=== PATIENT | male | born 1970 | race Caucasian/White ===

== ENCOUNTER 2023-10-11 13:11 | Inpatient (IN) | payer SELFPAY ==
[~2023-10-11] VITALS: Ht 160 cm; Wt 69.2 kg
[2023-10-11 13:22] VITALS: BP_SYST 110; PULSE 118; RESP 18; TEMP 97; O2SAT 96
[2023-10-11] MEDS: NACL 0.9% 1,000 ML IV ONE (14:02)
[2023-10-11 14:43] LABS: BASOPHILS % (AUTO) 0.4 % (0.0-2.0); EOSINOPHILS % (AUTO) 0.1 % (0.0-4.0); HEMATOCRIT 25.8 % (36-54); HEMOGLOBIN 8.6 g/dL (14.0-18.0); LYMPHOCYTES % (AUTO) 12.9 % (20.5-51.5); MEAN CORPUSCULAR HEMOGLOBIN 35 pg (27-31); MEAN CORPUSCULAR HGB CONC 33 % (32-36); MEAN CORPUSCULAR VOLUME 106 fL (79.0-98.0); MONOCYTES # (AUTO) 0.8 K/uL (0.0-1.0); MONOCYTES % (AUTO) 10.1 % (1.7-9.3); NEUTROPHILS # (AUTO) 6.1 K/uL (1.8-7.7); NEUTROPHILS % (AUTO) 76.5 % (40.0-70.0); RED BLOOD CELL COUNT(AUTO) 2.45 MIL/uL (4.2-6.2); RED CELL DISTRIBUTION WIDTH 16.5 % (9.0-15.0)
[2023-10-11 14:48] LABS: ANION GAP 13 (5-15); CALCIUM 8.1 mg/dL (8.4-11.0); CARBON DIOXIDE 20 mmol/L (23-29); CHLORIDE 111 mmol/L (98-107); CREATININE 1.51 mg/dL (0.55-1.30); GFR AFRICAN AMERICAN 62 mL/min (>90); GLUCOSE 191 mg/dL (74-106); POTASSIUM 3.4 mmol/L (3.5-5.1); SODIUM SERUM 144 mmol/L (136-145); UREA NITROGEN, BLOOD 22 mg/dL (8-21)
[2023-10-11 14:50] LABS: GFR NON AFRICAN-AMERICAN 51 mL/min (>90)
[2023-10-11 14:51] LABS: ANISOCYTOSIS 1+; OVALOCYTES FEW; PLATELET COUNT (AUTO) 88 K/uL (130-430)
[2023-10-11 16:04] LABS: BILIRUBIN,URINE NEGATIVE (NEGATIVE); BLOOD, URINE NEGATIVE (NEGATIVE); COLOR,URINE YELLOW (YELLOW); GLUCOSE,URINE NEGATIVE (NEGATIVE); KETONES,URINE NEGATIVE (NEGATIVE); LEUKOCYTE ESTERASE ,URINE 1+ (NEGATIVE); NITRITE, URINE POSITIVE (NEGATIVE); PH,URINE 6.5 (5.0-8.0); PROTEIN URINE NEGATIVE (NEGATIVE); UROBILINOGEN,URINE 0.2 (0.2-1.0)
[2023-10-11 16:12] LABS: CLARITY/URINE HAZY (CLEAR); RBC,URINE NONE SEEN /HPF (0-3)
[2023-10-11 16:13] LABS: BACTERIA,URINE MODERATE /HPF (None Seen); MUCUS,URINE None Seen /LPF (None Seen)
[2023-10-11 16:16] LABS: BARBITURATE, URINE NEGATIVE (NEG <=200); BENZODIAZEPINE, URINE NEGATIVE (NEG <=150); CANNABINOID, URINE NEGATIVE (NEG <=50); COCAINE, URINE NEGATIVE (NEG <=150); METHAMPHETAMINES SCREEN,URINE NEGATIVE (NEG <=500); OPIATE, URINE NEGATIVE (NEG <=100); PHENCYCLIDINE SCREEN,URINE NEGATIVE (NEG <=25); URINE AMPHETAMINE NEGATIVE (NEG <=500); URINE METHADONE NEGATIVE (NEG <=200); URINE OXYCODONE SCREEN NEGATIVE (NEG <=100)
[2023-10-11 16:17] LABS: UR TRICYCLIC ANTIDEPRESSANTS NEGATIVE (NEG <=300)
[2023-10-11] MEDS ORDERED: cefTRIAXone 1 GM VIAL ONE (16:37)
[2023-10-11] MEDS: cefTRIAXone 1 GM in D5W 50 ML IV ONE (16:56)
[2023-10-11] MEDS: ONDANSETRON 4 MG ODT TAB PO ONE (16:56)
[2023-10-11 18:34] LABS: ALBUMIN 2.4 g/dL (3.4-4.8); BILIRUBIN,DIRECT 1.3 mg/dL (0.0-0.3); TOTAL BILIRUBIN 2.7 mg/dL (0.0-1.0); TOTAL PROTEIN, SERUM 6.4 g/dL (6.4-8.3)
[2023-10-11] MEDS: NS 500 ML IV ONE (20:04)
[2023-10-11] MEDS ORDERED: DEXTROSE 50% JECT 50 ML DISP.SYRIN IVP PRN (20:30)
[2023-10-11] MEDS: chlordiazePOXIDE HCL 25 MG CAPSULE PO SCH (20:54)
[2023-10-11] MEDS: PANTOPRAZOLE SODIUM 40 MG/VIAL (PROTONIX) IVP ONE (21:05)
[2023-10-11 21:40] VITALS: BP_SYST 124; PULSE 115; RESP 20; TEMP 99; O2SAT 100
[2023-10-12] MEDS ORDERED: FOLIC ACID 5 MG/ML VIAL IV ONE (00:18)
[2023-10-12] MEDS ORDERED: THIAMINE HCL 200 MG/2 ML VIAL ONE (00:18)
[2023-10-12] MEDS ORDERED: MAGNESIUM SULFATE 1 GM/2 ML VIAL ONE (00:18)
[2023-10-12] MEDS ORDERED: MVI 10 ML VIAL IV ONE (00:18)
[2023-10-12 00:20] VITALS: BP_SYST 132; PULSE 110; RESP 18; TEMP 98.2; O2SAT 99
[2023-10-12] MEDS: metroNIDAZOLE 250 MG TABLET PO SCH (00:40)
[2023-10-12] MEDS: LEVOFLOXACIN 250 MG/D5W 50 ML IV ONE (00:42)
[2023-10-12] MEDS: LEVOFLOXACIN 250 MG/D5W 50 ML IV SCH (00:42)
[2023-10-12] MEDS: FOLIC ACID 1 MG, THIAMINE HCL 100 MG, MAGNESIUM SULFATE 1 GM, MVI 10 ML in NACL 0.9% 1,... IV ONE (02:21)
[2023-10-12] MEDS: ONDANSETRON HCL 4 MG/2 ML VIAL IM PRN (02:56)
[2023-10-12 06:25] LABS: INR 1.5 (0.80-1.20); PROTHROMBIN TIME 15.4 SECS (9.5-12.5)
[2023-10-12 06:27] LABS: BASOPHILS % (AUTO) 0.4 % (0.0-2.0); EOSINOPHILS % (AUTO) 0.2 % (0.0-4.0); HEMATOCRIT 23.6 % (36-54); HEMOGLOBIN 7.9 g/dL (14.0-18.0); LYMPHOCYTES % (AUTO) 25.6 % (20.5-51.5); MEAN CORPUSCULAR HEMOGLOBIN 35 pg (27-31); MEAN CORPUSCULAR HGB CONC 34 % (32-36); MEAN CORPUSCULAR VOLUME 103 fL (79.0-98.0); MONOCYTES # (AUTO) 0.5 K/uL (0.0-1.0); MONOCYTES % (AUTO) 6.5 % (1.7-9.3); NEUTROPHILS # (AUTO) 5.4 K/uL (1.8-7.7); NEUTROPHILS % (AUTO) 67.3 % (40.0-70.0); PLATELET COUNT (AUTO) 76 K/uL (130-430); RED BLOOD CELL COUNT(AUTO) 2.29 MIL/uL (4.2-6.2)
[2023-10-12 06:54] LABS: ALBUMIN 2.3 g/dL (3.4-4.8); CALCIUM 8.1 mg/dL (8.4-11.0); CREATININE 1.62 mg/dL (0.55-1.30); POTASSIUM 3.5 mmol/L (3.5-5.1); TOTAL BILIRUBIN 2.8 mg/dL (0.0-1.0)
[2023-10-12 07:30] LABS: RED CELL DISTRIBUTION WIDTH 16.4 % (9.0-15.0)
[2023-10-12 08:00] VITALS: BP_SYST 120; PULSE 110; RESP 28; TEMP 98.6; O2SAT 100
[2023-10-12] MEDS ORDERED: NALOXONE HCL 0.4 MG/ML AMP (NARCAN) IVP PRN (09:30)
[2023-10-12] MEDS: THIAMINE HCL 100 MG TABLET PO SCH (10:05)
[2023-10-12] MEDS: FOLIC ACID 1 MG TABLET PO SCH (10:05)
[2023-10-12] MEDS: PANTOPRAZOLE SODIUM 40 MG/VIAL (PROTONIX) IVP SCH (10:06)
[2023-10-12] MEDS: HYDROcodone/ACETAMIN 5-325 MG TAB (NORCO/ VICODIN) PO PRN (10:13)
[2023-10-12] MEDS: PROPRANOLOL HCL 10 MG TABLET (INDERAL) PO SCH (10:27)
[2023-10-12 11:01] LABS: TOTAL IRON BIND. CAPACITY 261 ug/dL (250-450)
[2023-10-12 12:00] VITALS: BP_SYST 101; PULSE 66; RESP 18; TEMP 98.4; O2SAT 100
[2023-10-12 16:00] VITALS: BP_SYST 111; PULSE 68; RESP 20; TEMP 98.7; O2SAT 99
[2023-10-12 20:00] VITALS: BP_SYST 101; PULSE 71; RESP 18; TEMP 96.9; O2SAT 98
[2023-10-13 00:28] VITALS: BP_SYST 100; PULSE 71; RESP 16; TEMP 97.4; O2SAT 99
[2023-10-13 05:00] LABS: BASOPHILS % (AUTO) 0.8 % (0.0-2.0); EOSINOPHILS # (AUTO) 0.1 K/uL (0.0-0.4); EOSINOPHILS % (AUTO) 2.5 % (0.0-4.0); HEMATOCRIT 22.2 % (36-54); HEMOGLOBIN 7.2 g/dL (14.0-18.0); LYMPHOCYTES # (AUTO) 1.9 K/uL (1.0-5.5); LYMPHOCYTES % (AUTO) 34.4 % (20.5-51.5); MEAN CORPUSCULAR HEMOGLOBIN 35 pg (27-31); MEAN CORPUSCULAR HGB CONC 33 % (32-36); MEAN CORPUSCULAR VOLUME 106 fL (79.0-98.0); MONOCYTES # (AUTO) 0.4 K/uL (0.0-1.0); MONOCYTES % (AUTO) 6.9 % (1.7-9.3); NEUTROPHILS % (AUTO) 55.4 % (40.0-70.0); PLATELET COUNT (AUTO) 79 K/uL (130-430); RED BLOOD CELL COUNT(AUTO) 2.09 MIL/uL (4.2-6.2); WHITE BLOOD COUNT (AUTO) 5.4 K/uL (4.8-10.8)
[2023-10-13 05:39] LABS: ALBUMIN 2.1 g/dL (3.4-4.8); CREATININE 1.62 mg/dL (0.55-1.30); POTASSIUM 3.6 mmol/L (3.5-5.1); THYROID STIMULATING HORMONE 2.27 uIu/mL (0.36-3.74); TOTAL PROTEIN, SERUM 5.3 g/dL (6.4-8.3)
[2023-10-13 08:00] VITALS: BP_SYST 104; PULSE 72; RESP 12; TEMP 98.1; O2SAT 97
[2023-10-13 11:17] VITALS: BP_SYST 103; PULSE 74; RESP 16; TEMP 97.5; O2SAT 99
[2023-10-13] MEDS: LORazepam 2 MG/ML VIAL IVP PRN (14:00)
[2023-10-13 16:09] VITALS: BP_SYST 105; PULSE 75; RESP 16; TEMP 97.9; O2SAT 99
[2023-10-13 20:00] VITALS: BP_SYST 112; PULSE 73; RESP 16; TEMP 96.9; O2SAT 99
[2023-10-14] VITALS: BP_SYST 93; RESP 16; TEMP 98.3; O2SAT 100
[2023-10-14 04:55] LABS: BASOPHILS % (AUTO) 0.8 % (0.0-2.0); EOSINOPHILS # (AUTO) 0.1 K/uL (0.0-0.4); EOSINOPHILS % (AUTO) 2.4 % (0.0-4.0); HEMOGLOBIN 7.2 g/dL (14.0-18.0); LYMPHOCYTES # (AUTO) 2.1 K/uL (1.0-5.5); LYMPHOCYTES % (AUTO) 42.4 % (20.5-51.5); MEAN CORPUSCULAR HEMOGLOBIN 36 pg (27-31); MEAN CORPUSCULAR HGB CONC 34 % (32-36); MEAN CORPUSCULAR VOLUME 106 fL (79.0-98.0); MONOCYTES # (AUTO) 0.3 K/uL (0.0-1.0); MONOCYTES % (AUTO) 6.3 % (1.7-9.3); NEUTROPHILS # (AUTO) 2.4 K/uL (1.8-7.7); NEUTROPHILS % (AUTO) 48.1 % (40.0-70.0); PLATELET COUNT (AUTO) 89 K/uL (130-430); RED BLOOD CELL COUNT(AUTO) 2.03 MIL/uL (4.2-6.2); RED CELL DISTRIBUTION WIDTH 16.3 % (9.0-15.0); RETICULOCYTE COUNT 5.1 % (0.5-1.5); WHITE BLOOD COUNT (AUTO) 4.9 K/uL (4.8-10.8)
[2023-10-14 05:07] LABS: INR 1.4 (0.80-1.20); PROTHROMBIN TIME 14.5 SECS (9.5-12.5)
[2023-10-14 05:51] LABS: CALCIUM 7.8 mg/dL (8.4-11.0); CREATININE 1.62 mg/dL (0.55-1.30); PHOSPHORUS 3.6 mg/dL (2.7-4.5); POTASSIUM 3.4 mmol/L (3.5-5.1); TOTAL BILIRUBIN 1.3 mg/dL (0.0-1.0); TOTAL PROTEIN, SERUM 5.2 g/dL (6.4-8.3)
[2023-10-14] MEDS: MIDAZOLAM HCL 5 MG/5 ML VIAL ONE (07:59)
[2023-10-14] MEDS: MEPERIDINE 100 MG INJ. 100 MG/ML VIAL ONE (07:59)
[2023-10-14 08:10] VITALS: BP_SYST 98; PULSE 58; RESP 18; TEMP 97.4; O2SAT 100
[2023-10-14 08:56] LABS: HEMATOCRIT 21.4 % (36-54)
[2023-10-14 12:32] VITALS: BP_SYST 107; PULSE 58; RESP 18; TEMP 97.6; O2SAT 95
[2023-10-14] MEDS ORDERED: NEPH PO (12:37)
[2023-10-14] MEDS ORDERED: PROP10TA10 PO (12:37)
[2023-10-14] MEDS: POTASSIUM CHLORIDE 20 MEQ TABLET.ER PO ONE (14:26)
[2023-10-14] MEDS: KCL 20 mEq in 100 mL (PREMIX) 100 ML IV ONE (14:27)
[2023-10-14] MEDS: cefTRIAXone 1 GM in D5W 50 ML IV SCH (16:00)
[2023-10-14 17:06] VITALS: BP_SYST 106; PULSE 52; RESP 18; TEMP 97.5; O2SAT 95
[2023-10-14] MEDS: OCTREOTIDE ACETATE 1,250 MCG in NS 250 ML IV SCH (18:16)
[2023-10-14] MEDS: OCTREOTIDE ACETATE 50 MCG/ML AMP IVP ONE (18:16)
[2023-10-14 20:00] VITALS: BP_SYST 110; PULSE 54; RESP 16; TEMP 97.7; O2SAT 100
[2023-10-14] MEDS: INSULIN REGULAR, HUMAN 100 UNITS/ML, 3 ML VIAL (humuLIN R) SUBCUT PRN (21:38)
[2023-10-15] VITALS: BP_SYST 103; PULSE 62; RESP 16; TEMP 97.9; O2SAT 98
[2023-10-15 05:28] LABS: EOSINOPHILS # (AUTO) 0.1 K/uL (0.0-0.4); EOSINOPHILS % (AUTO) 2.2 % (0.0-4.0); HEMATOCRIT 22.6 % (36-54); HEMOGLOBIN 7.5 g/dL (14.0-18.0); LYMPHOCYTES # (AUTO) 1.6 K/uL (1.0-5.5); LYMPHOCYTES % (AUTO) 35.9 % (20.5-51.5); MEAN CORPUSCULAR HEMOGLOBIN 36 pg (27-31); MEAN CORPUSCULAR HGB CONC 33 % (32-36); MEAN CORPUSCULAR VOLUME 107 fL (79.0-98.0); MONOCYTES # (AUTO) 0.4 K/uL (0.0-1.0); MONOCYTES % (AUTO) 8.9 % (1.7-9.3); NEUTROPHILS # (AUTO) 2.4 K/uL (1.8-7.7); PLATELET COUNT (AUTO) 100 K/uL (130-430); RED BLOOD CELL COUNT(AUTO) 2.12 MIL/uL (4.2-6.2); RED CELL DISTRIBUTION WIDTH 16.4 % (9.0-15.0); WHITE BLOOD COUNT (AUTO) 4.6 K/uL (4.8-10.8)
[2023-10-15 05:59] LABS: ALBUMIN 2.2 g/dL (3.4-4.8); CALCIUM 7.8 mg/dL (8.4-11.0); CREATININE 1.57 mg/dL (0.55-1.30); POTASSIUM 3.9 mmol/L (3.5-5.1); TOTAL BILIRUBIN 1.3 mg/dL (0.0-1.0); TOTAL PROTEIN, SERUM 5.6 g/dL (6.4-8.3)
[2023-10-15 08:00] VITALS: BP_SYST 126; PULSE 58; RESP 16; TEMP 97.9; O2SAT 99
[2023-10-15 12:11] VITALS: BP_SYST 110; PULSE 58; RESP 18; TEMP 98.8; O2SAT 100
[2023-10-15] MEDS: chlordiazePOXIDE HCL 10 MG CAPSULE PO SCH (15:05)
[2023-10-15 16:07] VITALS: BP_SYST 122; PULSE 66; RESP 18; TEMP 98.4; O2SAT 99
[2023-10-15 20:30] VITALS: BP_SYST 129; PULSE 67; RESP 20; TEMP 98.6; O2SAT 97
[2023-10-16 05:30] VITALS: BP_SYST 111; PULSE 54; RESP 18; TEMP 98.4; O2SAT 98
[2023-10-16 08:21] LABS: ALBUMIN 2.1 g/dL (3.4-4.8); CALCIUM 7.9 mg/dL (8.4-11.0); CREATININE 1.45 mg/dL (0.55-1.30); POTASSIUM 3.8 mmol/L (3.5-5.1); TOTAL BILIRUBIN 1.4 mg/dL (0.0-1.0); TOTAL PROTEIN, SERUM 5.8 g/dL (6.4-8.3)
[2023-10-16 08:29] LABS: BASOPHILS % (AUTO) 0.5 % (0.0-2.0); EOSINOPHILS # (AUTO) 0.1 K/uL (0.0-0.4); EOSINOPHILS % (AUTO) 1.7 % (0.0-4.0); HEMATOCRIT 23.6 % (36-54); LYMPHOCYTES # (AUTO) 1.3 K/uL (1.0-5.5); LYMPHOCYTES % (AUTO) 28.9 % (20.5-51.5); MEAN CORPUSCULAR HEMOGLOBIN 36 pg (27-31); MEAN CORPUSCULAR HGB CONC 34 % (32-36); MEAN CORPUSCULAR VOLUME 107 fL (79.0-98.0); MONOCYTES # (AUTO) 0.4 K/uL (0.0-1.0); MONOCYTES % (AUTO) 8.8 % (1.7-9.3); NEUTROPHILS # (AUTO) 2.7 K/uL (1.8-7.7); NEUTROPHILS % (AUTO) 60.1 % (40.0-70.0); PLATELET COUNT (AUTO) 103 K/uL (130-430); RED BLOOD CELL COUNT(AUTO) 2.21 MIL/uL (4.2-6.2); RED CELL DISTRIBUTION WIDTH 16.6 % (9.0-15.0); WHITE BLOOD COUNT (AUTO) 4.4 K/uL (4.8-10.8)
[2023-10-16] MEDS ORDERED: CIPR-261 PO (09:24)
[2023-10-16] MEDS ORDERED: PRO40 PO (09:25)
[2023-10-16] MEDS ORDERED: CHLO10CA7 PO (09:26)
[2023-10-16 13:39] VITALS: BP_SYST 113; PULSE 57; RESP 18; TEMP 98.3; O2SAT 100
[2023-10-16 16:04] VITALS: BP_SYST 106; PULSE 71; RESP 15; TEMP 97.4; O2SAT 98
[2023-10-16 18:01] VITALS: BP_SYST 106; PULSE 71; RESP 15; TEMP 97.4; O2SAT 98
== END 2023-10-16 20:00 | disposition home or self-care (01) | DRG 377 ==
LOC: EDBD 13:11 → SED 13:11 → STU 20:16
PROVIDERS: ADMIT Internal Medicine; ATTEND Internal Medicine
PROC: 0DB78ZX Excision of Stomach, Pylorus, Via Natural or Artificial Opening Endoscopic, Diagnostic (ICD-10-PCS; principal; 2023-10-14 13:45)
PROC: 0DB98ZZ Excision of Duodenum, Via Natural or Artificial Opening Endoscopic (ICD-10-PCS; 2023-10-14 13:45)
PROC: 06L38CZ Occlusion of Esophageal Vein with Extraluminal Device, Via Natural or Artificial Opening Endoscopic (ICD-10-PCS; 2023-10-14 13:45)
DX: K29.21 Alcoholic gastritis with bleeding (principal); E43 Unspecified severe protein-calorie malnutrition; I85.11 Secondary esophageal varices with bleeding; D68.9 Coagulation defect, unspecified; N39.0 Urinary tract infection, site not specified; N17.9 Acute kidney failure, unspecified; F10.10 Alcohol abuse, uncomplicated; D63.8 Anemia in other chronic diseases classified elsewhere; D69.59 Other secondary thrombocytopenia; E11.22 Type 2 diabetes mellitus with diabetic chronic kidney disease; Y90.1 Blood alcohol level of 20-39 mg/100 ml; N18.9 Chronic kidney disease, unspecified; K70.30 Alcoholic cirrhosis of liver without ascites; K52.9 Noninfective gastroenteritis and colitis, unspecified; K31.7 Polyp of stomach and duodenum; Z79.899 Other long term (current) drug therapy; Z88.8 Allergy status to other drugs, medicaments and biological substances; Z68.27 Body mass index [BMI] 27.0-27.9, adult
CPT/HCPCS: 36415; 43239; 43244; 43251; 71045; 76770; 80048; 80053; 80061; 80076; 80307; 81000; 81001; 81015; 82105; 82140; 82272; 82948; 83037; 83540; 83550; 83605; 83690; 83735; 83880; 84100; 84443; 84484; 85025; 85044; 85379; 85610; 85730; 87040; 87086; 87186; 87230; 88305; 88312; 88313; 93005; 93306; 99291; G0378; G0482; J0696; J1815; J1956; J2060; J2175; J2250; J2354; J2405; J2470; J3411; J3475; J3480; J3490; J7030; J7050; J7060; Q0162